=== PATIENT | female | born 1950 | race Caucasian/White ===

== ENCOUNTER 2017-12-28 18:22 | Emergency (ER) | payer BC ==
[~2017-12-28] VITALS: Ht 160 cm; Wt 90.7 kg
[2017-12-28] MEDS ORDERED: NORCO 5-325 TA1 EACH PO (19:36)
[2017-12-28] MEDS ORDERED: IBUPROFEN 600600 M1 PO (19:36)
[2017-12-28 19:51] VITALS: BP 157/56
== END 2017-12-28 19:52 | disposition home or self-care (01) ==
LOC: M.ERS 18:22 → EDSEX 18:22 → M.ERS 19:52
DX: S89.92XA Unspecified injury of left lower leg, initial encounter (principal); E11.8 Type 2 diabetes mellitus with unspecified complications; I10 Essential (primary) hypertension; E78.00 Pure hypercholesterolemia, unspecified; Z88.8 Allergy status to other drugs, medicaments and biological substances; W01.0XXA Fall on same level from slipping, tripping and stumbling without subsequent striking against object, initial encounter; Y93.89 Activity, other specified; Y92.89 Other specified places as the place of occurrence of the external cause; Y99.8 Other external cause status